=== PATIENT | female | born 2000 | race Caucasian/White ===

== ENCOUNTER 2021-07-12 21:31 | Inpatient (IN) | payer MEDICAID ==
[~2021-07-12] VITALS: Ht 177.8 cm; Wt 123.4 kg
[2021-07-13] MEDS ORDERED: ALBU8HFA IH (00:54)
[2021-07-13] MEDS ORDERED: DULO-113 PO (00:54)
[2021-07-13] MEDS ORDERED: TRAZ-252 PO (00:54)
[2021-07-13] MEDS ORDERED: LORazepam 2 MG TABLET PO PRN (01:30)
[2021-07-13] MEDS ORDERED: ZOLPIDEM TARTRATE 10 MG TABLET PO PRN (01:30)
[2021-07-13] MEDS ORDERED: HALOPERIDOL 5 MG TABLET PO PRN (01:30)
[2021-07-13 03:19] LABS: COVID AG,FIA SOURCE NASAL SWAB
[2021-07-13 04:30] LABS: APPEARANCE,URINE CLOUDY (CLEAR)
[2021-07-13 04:31] LABS: AMPHET/METH SCREEN,URINE NEGATIVE (NEGATIVE); BARBITURATE SCREEN, URINE NEGATIVE (NEGATIVE); BENZODIAZEPINES SCREEN,URINE NEGATIVE (NEGATIVE); BILIRUBIN,URINE NEGATIVE (NEGATIVE); CANNABINOID SCREEN,URINE NEGATIVE (NEGATIVE); COCAINE SCREEN,URINE NEGATIVE (NEGATIVE); GLUCOSE, URINE (UA) NEGATIVE (NEGATIVE); KETONES,URINE NEGATIVE (NEGATIVE); METHADONE SCREEN, URINE NEGATIVE (NEGATIVE); OCCULT BLOOD,URINE MODERATE (NEGATIVE); OPIATE SCREEN,URINE NEGATIVE (NEGATIVE); PROTEIN,URINE TRACE mg/dL (NEGATIVE)
[2021-07-13 04:32] LABS: LEUKOCYTE ESTERASE ,URINE MODERATE (NEGATIVE); NITRATE,URINE NEGATIVE (NEGATIVE); UROBILINOGEN,URINE <=1.0 mg/dL (<=1.0)
[2021-07-13 04:33] LABS: PHENCYCLIDINE SCREEN,URINE NEGATIVE (NEGATIVE)
[2021-07-13 04:39] LABS: BACTERIA,URINE Moderate /HPF (None Seen); SQUAMOUS EPITHELIAL CELL,UR Many /LPF (None Seen)
[2021-07-13] MEDS ORDERED: PNEUMOCOCCAL VACCINE POLYVALENT 0.5 ML VIAL [PPSV23] IM. ONE (11:00)
[2021-07-13 11:36] VITALS: BP 131/91
[2021-07-13 16:09] VITALS: BP 136/82
[2021-07-13] MEDS ORDERED: BACITRACIN 28 GM OINTMENT TP PRN (16:45)
[2021-07-13] MEDS ORDERED: MAG HYDROX/AL HYDROX/SIMETH ES 30 ML SUSPENSION UDCUP PO PRN (16:45)
[2021-07-13] MEDS ORDERED: BENZOCAINE/MENTHOL LOZENGE PO PRN (16:45)
[2021-07-13] MEDS ORDERED: DOCUSATE SODIUM 100 MG CAPSULE PO PRN (16:45)
[2021-07-13] MEDS ORDERED: IBUPROFEN 600 MG TABLET PO PRN (16:45)
[2021-07-13] MEDS ORDERED: LOPERAMIDE HCL 2 MG CAPSULE PO PRN (16:45)
[2021-07-13] MEDS ORDERED: ACETAMINOPHEN 325 MG TABLET PO PRN (16:45)
[2021-07-13] MEDS ORDERED: ALBUTEROL SULFATE HFA 90 MCG/PUFF 8 GM INHALER IH PRN (16:45)
[2021-07-13] MEDS ORDERED: CloNIDine HCL 0.1 MG TABLET PO PRN (16:45)
[2021-07-13] MEDS ORDERED: MAGNESIUM HYDROXIDE SUSPENSION 30 ML UDCUP PO PRN (16:45)
[2021-07-13] MEDS ORDERED: OMEPRAZOLE 20 MG CAPSULE PO PRN (16:45)
[2021-07-13] MEDS ORDERED: ONDANSETRON HCL 4 MG TABLET PO PRN (16:45)
[2021-07-13] MEDS ORDERED: PETROLATUM,WHITE 28 GM JELLY TP PRN (16:45)
[2021-07-13] MEDS: CEPHALEXIN MONOHYDRATE 500 MG CAPSULE PO SCH (17:00)
[2021-07-13] MEDS: TraZODone HCL 50 MG TABLET PO SCH (21:00)
[2021-07-14 00:31] VITALS: BP 133/82
[2021-07-14 08:05] VITALS: BP 147/84
[2021-07-14] MEDS: CEPHALEXIN MONOHYDRATE 500 MG CAPSULE PO SCH ×2 (08:23→16:02)
[2021-07-14] MEDS: DULoxetine HCL 60 MG CAPSULE PO SCH (08:24)
[2021-07-14 16:04] VITALS: BP 133/63
[2021-07-14] MEDS: TraZODone HCL 50 MG TABLET PO SCH (20:25)
[2021-07-15 00:44] VITALS: BP 131/68
[2021-07-15] MEDS: DULoxetine HCL 60 MG CAPSULE PO SCH (08:10)
[2021-07-15] MEDS: CEPHALEXIN MONOHYDRATE 500 MG CAPSULE PO SCH ×2 (08:10→17:02)
[2021-07-15 08:12] VITALS: BP 120/76
[2021-07-15 16:03] VITALS: BP 140/85
[2021-07-15] MEDS: TraZODone HCL 50 MG TABLET PO SCH (20:08)
[2021-07-16 05:44] VITALS: BP 125/71
[2021-07-16 08:11] VITALS: BP 137/84
[2021-07-16] MEDS: CEPHALEXIN MONOHYDRATE 500 MG CAPSULE PO SCH ×2 (08:11→16:05)
[2021-07-16] MEDS: DULoxetine HCL 60 MG CAPSULE PO SCH (08:11)
[2021-07-16 16:21] VITALS: BP 129/77
[2021-07-16] MEDS: TraZODone HCL 50 MG TABLET PO SCH (20:03)
[2021-07-17 05:46] VITALS: BP 132/79
[2021-07-17] MEDS: CEPHALEXIN MONOHYDRATE 500 MG CAPSULE PO SCH (07:58)
[2021-07-17] MEDS: DULoxetine HCL 60 MG CAPSULE PO SCH (07:58)
[2021-07-17 08:32] VITALS: BP 120/80
== END 2021-07-17 12:50 | disposition home or self-care (01) | DRG 754 ==
LOC: EMS 21:41 → B2S 07-13 08:32
PROVIDERS: ADMIT Psychiatry & Neurology Psychiatry; ATTEND Psychiatry & Neurology Psychiatry
DX: F32.9 Major depressive disorder, single episode, unspecified (principal); R45.851 Suicidal ideations; F43.10 Post-traumatic stress disorder, unspecified; G47.00 Insomnia, unspecified; F41.9 Anxiety disorder, unspecified; F12.10 Cannabis abuse, uncomplicated; K59.00 Constipation, unspecified; N39.0 Urinary tract infection, site not specified; F17.200 Nicotine dependence, unspecified, uncomplicated; Z20.822 Contact with and (suspected) exposure to COVID-19; Z91.51 Personal history of suicidal behavior; Z91.52 Personal history of nonsuicidal self-harm; Z71.51 Drug abuse counseling and surveillance of drug abuser; Z71.6 Tobacco abuse counseling; Z72.89 Other problems related to lifestyle; Z28.21 Immunization not carried out because of patient refusal
CPT/HCPCS: 81001; 84703; 99285